=== PATIENT | female | born 1960 | race Caucasian/White ===

== ENCOUNTER 2021-05-08 11:11 | Outpatient (CLI) | payer OTHER, SELFPAY ==
--- NOTE | ~2021-05-08 | US_ITS ---
EXAMINATION: US thyroid DATE: 05/08/2021 11:40 INDICATION: Nontoxic single thyroid nodule. TECHNIQUE: Multiple ultrasound images of the thyroid were obtained. COMPARISON: None. FINDINGS: The right thyroid lobe measures 4.5 x 1.7 x 1.4 cm. The left thyroid lobe measures 4.0 x 1.6 x 1.0 c m. In the right thyroid lobe, there is a 7 mm solid, hypoechoic, [id number]-[id number]-[id number] nodule with ill-def ined margin without echogenic foci (TI-RADS TR4). IMPRESSION: 1. Small thyroid nodule, likely not clinically significant. No follow-up is needed. Reviewed, dictated and finalized at location A. IMPRESSION: 1. Small thyroid nodule, likely not clinically significant. No follow-up is nee ded.
== END 2021-05-08 11:12 | disposition home or self-care (01) ==
LOC: ANHIMG 11:18
PROVIDERS: PCP Family Medicine; Visit Provider Family Medicine
DX: E04.1 Nontoxic single thyroid nodule (principal); R22.1 Localized swelling, mass and lump, neck
CPT/HCPCS: 76536

== ENCOUNTER → 2021-05-15 17:22 | Outpatient (CLI) | payer OTHER, SELFPAY ==
--- NOTE | ~2021-05-15 | MM_ITS ---
EXAMINATION: MM screening [facility] BI w remigio HISTORY: Screening TECHNIQUE: Craniocaudal and mediolateral oblique 3-D tomosynthesis images were obtained and synthetic 2-D images were generated. CAD analysis was submitted and interpreted. COMPARISON: No prior mammogram is available for comparison at this institution. BREAST PARENCHYMAL COMPOSITION: There are scattered areas of fibroglandular density. FINDINGS: There is no evidence of suspicious mass, calcification, or architectural distortion to sugg est malignancy in either breast. There has been no suspicious interval change. IMPRESSION: 1. No mammographic evidence of malignancy. 2. Recommend routine screening mammography in one year. BI-RADS Category 1: Negative Reviewed, dictated and finalized at location A.
== END ==
PROVIDERS: PCP Family Medicine; Visit Provider Family Medicine
DX: Z12.31 Encounter for screening mammogram for malignant neoplasm of breast (principal)
CPT/HCPCS: 77063; 77067

== ENCOUNTER 2021-06-12 01:24 | Day surgery (SDC) | payer OTHER, SELFPAY ==
[2021-05-30 13:14] VITALS: BMI 27.3
[2021-06-12 09:52] VITALS: BP 107/90; PULSE 74; RESP 18; TEMP 36.4; O2SAT 99
[2021-06-12] MEDS: LACTATED RINGERS 1,000 ML 150 ML IV CONT (10:01)
--- NOTE | 2021-06-12 10:08 | WPDGICN ---
Assessment and Plan Assessment and plan (1) Encounter for screening colonoscopy: Code(s): Z12.11 - Encounter for screening for malignant neoplasm of colon Status: Acute Assessment and Plan: Patient presents for screening colonoscopy. She gives a history that she may have had colon polyps 9 or 10 years ago. Further recommendations will be given after endoscopy. GI Consult Note Consult date/time: 06/12/21 10:08 HPI: Do Hayes is a 60 year old female Presents for screening colonoscopy. Patient's current weight appetite and bowel movements are normal. She denies abdominal pain. She has had no bleeding. Family history is noncontributory. Patient states that she had a prior colonoscopy 9 or 10 years ago that may have shown colon polyps. Her family history is noncontributory. Review of Systems Review of Systems: All systems reviewed & are unremarkable except as noted in HPI and below PMFSH Past Medical History Medical History (Updated 06/12/21 @ 10:09 by Surya Sanchez MD) Hypertension Surgical History Surgical History History of delivery x3 Family History Family History Mother Hypertension Sibling Thymic cancer Asthma Diabetes mellitus Social History Social History Smoking status: Never smoker Tobacco type: cigarettes Second hand tobacco smoke exposure: No Smoking end date: 02/09/84 Alcohol intake: current Drinks per week: 1 Substance use: never Substance use type: does not use Living arrangements: with family Gender identity (if verbalized by the patient): Female Sexual Orientation (if Verbalized by the Patient): Straight or Heterosexual Spiritual care concerns: No Meds Home Medications and Allergies Home Medications Medication Instructions Recorded Confirmed Type amlodipine 5 mg tablet 5 mg PO DAILY #30 tablet 04/30/21 05/30/21 Rx lisinopril 10 mg tablet 10 mg PO DAILY #30 tablet 04/30/21 05/30/21 Rx Allergies Allergy/AdvReac Type Severity Reaction Status Date / Time Penicillins Allergy Unknown Hives Verified 06/12/21 09:50 Vital Signs Vital Signs - 24 hr 06/12/21 09:52 Temperature 97.5 F L Pulse Rate 74 Respiratory Rate 18 Blood Pressure 107/90 Pulse Oximetry 99 Exam Narrative: Physical exam reveals patient to be alert. Vital signs stable. HEENT exam is unremarkable. Patient is anicteric. Lungs are clear to auscultation and percussion. Heart is without murmur or extra sounds. Abdomen bowel sounds are present soft nontender with no organomegaly. Digital external rectal exam is normal.
--- NOTE | 2021-06-12 10:09 | WPDANESEPPF ---
Anes - Initial Pre Proc Eval Procedure: Operation Date: 06/12/21 11:00 Proposed Procedures p Screening Colonoscopy - Surya Sanchez MD Date/Time: 06/12/21 10:09 Surgeon: Surya Sanchez MD Pre Op Diagnosis: neoplasm screening, hx of colon polyps Patient Data Age: 60 Gender: F Height: 1.6 m Weight: 67.7 kg Last Vital Signs Temp 36.4 C L 06/12/21 09:52 Pulse 74 06/12/21 09:52 Resp 18 06/12/21 09:52 BP 107/90 06/12/21 09:52 Pulse Ox 99 06/12/21 09:52 Allergies Allergy/AdvReac Type Severity Reaction Status Date / Time Penicillins Allergy Unknown Hives Verified 06/12/21 09:50 Home Medications Medication Instructions Recorded Confirmed Type amlodipine 5 mg tablet 5 mg PO DAILY #30 tablet 04/30/21 05/30/21 Rx lisinopril 10 mg tablet 10 mg PO DAILY #30 tablet 04/30/21 05/30/21 Rx Patient hx anesthesia problems: none Family hx anesthesia problems: none Results Review: All pre-operative results and documents have been reviewed as part of the pre-operative evaluation. [facility] Past Medical History Medical History Hypertension Surgical History Surgical History History of delivery x3 Family History Family History Mother Hypertension Sibling Thymic cancer Asthma Diabetes mellitus Social History Social History Smoking status: Never smoker Tobacco type: cigarettes Second hand tobacco smoke exposure: No Smoking end date: 02/09/84 Alcohol intake: current Drinks per week: 1 Substance use: never Substance use type: does not use Living arrangements: with family Gender identity (if verbalized by the patient): Female Sexual Orientation (if Verbalized by the Patient): Straight or Heterosexual Spiritual care concerns: No Anes - Eval Final PreProcedure Day of Procedure 06/12/21 10:09 Patient weight: overweight Heart: regular rate and rhythm Lungs: clear to auscultation Airway: Mallampati scale class II Neurological: alert and oriented Last oral intake: >/= 8 hours ASA classification: II Emergent: no Anesthetic plan: proceed Anesthesia type and monitoring: general GIVS and standard monitoring Results Review: All pre-operative results and documents have been reviewed as part of the pre-operative evaluation. Informed Consent: The patient's anesthetic plan and its attendant risks and benefits were discussed with the patient/family/POA. Questions were solicited and answers provided to the satisfaction of the patient/family/POA.
[2021-06-12 10:36] VITALS: BP 94/46; PULSE 78; RESP 20; O2SAT 94
[2021-06-12 10:46] VITALS: BP 71/51; PULSE 80; RESP 19; O2SAT 94
[2021-06-12 10:56] VITALS: BP 97/71; PULSE 76; RESP 17; O2SAT 100
[2021-06-12 11:06] VITALS: BP 90/70; PULSE 66; RESP 22; O2SAT 100
[2021-06-12 11:16] VITALS: BP 111/53; PULSE 68; RESP 18; O2SAT 100
== END 2021-06-12 11:32 | disposition home or self-care (01) ==
PROVIDERS: PCP Family Medicine; Visit Provider Internal Medicine Gastroenterology
PROC: 0DJD8ZZ Inspection of Lower Intestinal Tract, Via Natural or Artificial Opening Endoscopic (ICD-10-PCS; CPT 45378; principal; 2021-06-12 11:00)
DX: Z12.11 Encounter for screening for malignant neoplasm of colon (principal); D12.3 Benign neoplasm of transverse colon; K64.8 Other hemorrhoids; K57.30 Diverticulosis of large intestine without perforation or abscess without bleeding; Z87.891 Personal history of nicotine dependence; I10 Essential (primary) hypertension
CPT/HCPCS: 45380; 88305; J2704; J7120

== ENCOUNTER 2022-07-22 14:00 | Emergency (ER) | payer OTHER, SELFPAY ==
--- NOTE | ~2022-07-22 | XR_ITS ---
EXAMINATION: XR hand RT min 3V DATE: 07/22/2022 INDICATION: Right hand injury and pain. TECHNIQUE: 3 views of right hand were obtained. COMPARISON: None. FINDINGS: Bone alignment is normal. No fracture. There is mild osteoarthritis of triscaphe joint and first carpometacarpal joint. There is mild osteoarthritis of second-fifth proximal interphalangeal kenny ints and second and third distal interphalangeal joints. IMPRESSION: 1. Mild polyarticular osteoarthritis. Reviewed, dictated and finalized at location A.
== END 2022-07-22 16:55 | disposition home or self-care (01) ==
PROVIDERS: Emergency Provider Nurse Practitioner Family
DX: S60.221A Contusion of right hand, initial encounter (principal); M54.50 Low back pain, unspecified; I10 Essential (primary) hypertension
CPT/HCPCS: 73130; 99213; G0463

== ENCOUNTER → 2022-09-03 11:43 | Outpatient (CLI) | payer OTHER, SELFPAY ==
--- NOTE | ~2022-09-03 | MM_ITS ---
EXAMINATION: MM screening [facility] BI w remigio HISTORY: Screening mammogram TECHNIQUE: Craniocaudal and mediolateral oblique 3-D tomosynthesis images were obtained and synthetic 2-D images were generated. CAD analysis was submitted and interpreted. COMPARISON: 05/15/2021 BREAST PARENCHYMAL COMPOSITION: There are scattered areas of fibroglandular density. FINDINGS: RIGHT BREAST: No suspicious mass, calcification, or architectural distortion are identified to sugges t malignancy. There has been no suspicious interval change. LEFT BREAST: An asymmetry is present in the far posterior third of the breast in line with the nipple axis on the craniocaudal view (tomosynthesis image 40/71). IMPRESSION: 1. Left breast asymmetry. 2. Additional mammographic views and possible breast ultrasound are recommended. BI-RADS Category 0: Incomplete: Needs additional imaging evaluation. Reviewed, dictated and finalized at location A. IMPRESSION: 1. Left breast asymmetry. 2. Additional mammographic views and possible breast ultrasound are recommended . BI-RADS Category 0: Incomplete: Needs additional imaging evaluation.
== END ==
PROVIDERS: PCP Family Medicine; Visit Provider Family Medicine
DX: Z12.31 Encounter for screening mammogram for malignant neoplasm of breast (principal); N64.89 Other specified disorders of breast
CPT/HCPCS: 77063; 77067

== ENCOUNTER → 2022-10-30 08:15 | Outpatient (CLI) | payer OTHER, SELFPAY ==
--- NOTE | ~2022-10-30 | MMUS_ITS ---
EXAMINATION: MM diagnostic [facility]tony LT w remigio, US breast LT complete HISTORY: Follow-up left breast asymmetry TECHNIQUE: Additional 3-D tomosynthesis images of the left breast were performed and synthetic 2-D im ages were generated. CAD analysis was submitted and interpreted. High resolution Limited left breast ultrasound was performed. COMPARISON: Comparison to multiple prior studies sequentially, with oldest reviewed study dated 08/2021. BREAST PARENCHYMAL COMPOSITION: Breast composed of scattered areas of fibroglandular density FINDINGS: MAMMOGRAPHIC FINDINGS: There are focal asymmetry posterior aspect of the left breast laterally on CC view. No discrete mass, suspicious architectural distortion or clustered calcifications are identified. ULTRASOUND: Limited left breast ultrasound: At 12:00, 3 cm from the nipple there is a 5 mm cyst. At 10:00, 5 cm f rom the nipple there is a 3 mm cyst. No suspicious masses to suggest malignancy. IMPRESSION: 1. No evidence for malignancy in the left breast. Benign findings. 2. Routine yearly screening mammogram and regular clinical breast examination are recommended. BI-RADS Category 2: Benign finding(s). Reviewed, dictated and finalized at location A. IMPRESSION: 1. No evidence for malignancy in the left breast. Benign findings. 2. Routine yearly screening mammogram and regular clinical breast examination a re recommended. BI-RADS Category 2: Benign finding(s).
== END ==
PROVIDERS: PCP Family Medicine; Visit Provider Family Medicine
DX: R92.8 Other abnormal and inconclusive findings on diagnostic imaging of breast (principal)
CPT/HCPCS: 76641; 77061; 77065; G0279

== ENCOUNTER 2024-12-01 11:02 | Outpatient (CLI) | payer MEDICARE, SELFPAY ==
--- NOTE | ~2024-12-01 | MM_ITS ---
EXAMINATION: MM screening [facility] BI w remigio HISTORY: Screening TECHNIQUE: Craniocaudal and mediolateral oblique 3-D tomosynthesis images were obtained and synthetic 2-D images were generated. CAD analysis was submitted and interpreted. COMPARISON: Comparison to multiple prior studies sequentially, with oldest reviewed study dated 05/15/2021. BREAST PARENCHYMAL COMPOSITION: Not dense: There are scattered areas of fibroglandular density. FINDINGS: There is no evidence of suspicious mass, calcification, or architectural distortion to suggest malignancy in either breast. There has been no suspicious interval change. IMPRESSION: 1. No mammographic evidence of malignancy. 2. Recommend routine screening mammography in one year. BI-RADS Category 1: Negative Reviewed, dictated and finalized at location O.
--- NOTE | ~2024-12-01 | DEXA_ITS ---
Bone Density Report Name: CHONG SWANSON Age: 64 Sex: Female Ethnicity: White Date of : 1960 Indication: postmenopausal; screening for osteoporosis; Referring Provider: GLENN KAISER Study: Bone densitometry was performed. Exam Date: December 01, 2024 Accession number: [id number] Bone Density: Region BMD T-score Z-score Classification AP Spine(L1-L4) 0.853 -1.8 0.0 Osteopenia Femoral Neck (Left) 0.535 -2.8 -1.3 Osteoporosis Total Hip (Left) 0.679 -2.2 -0.9 Osteopenia Femoral Neck (Right) 0.539 -2.8 -1.3 Osteoporosis Total Hip (Right) 0.629 -2.6 -1.3 Osteoporosis Total Hip Mean 0.654 -2.4 -1.1 Osteopenia World Health Organization criteria for BMD impression classify patients as: Normal (T-score at or above -1.0), Osteopenia (T-score between -1.0 and -2.5), or Osteoporosis (T-score at or below -2.5). 10-year Fracture Risk: FRAX not reported because: Some T-score for Spine Total or Hip Total or Femoral Neck at or below -2.5 Clinical Information Provided by Patient: Patient maximum height was 63 Menopause Age: 54 No regular weight bearing exercise Drinks caffeinated beverages Onset of menses at age 11 Number of children 3 Impression: The patient has osteoporosis, based on the Left Femoral Neck T-score. Discussion: INCREASED RISK OF FRACTURE. BONE DENSITY IS UNDESIRABLY LOW AT ONE OR MORE SKELETAL SITES, CONSISTENT WITH POSTMENOPAUSAL OSTEOPOROSIS. This patient's lowest T-score meets the World Health Organization's (WHO) criteria for osteoporosis at one or more sites (T-score -2.5 or below). In untreated patients, the risk of osteoporotic fracture increases approximately two-fold for each 1.0 SD decrease in T-score. Low bone density is not the only risk factor for fracture; also consider factors such as patient's age, frailty or poor health, risk of falling, risk of injury, previous osteoporotic fracture, family history of osteoporosis, cigarette smoking, low body weight, etc. Not everyone with low bone mineral density has osteoporosis; osteomalacia and other metabolic bone disorders should also be considered. Patients who have osteoporosis should be evaluated for specific diseases and conditions (secondary causes) that may cause or contribute to bone loss. The [place] Association of Clinical Endocrinologists (AACE) and National Osteoporosis Foundation (NOF) recommend pharmacologic intervention for all postmenopausal women whose T-score is in this range. The patient should follow a healthful lifestyle (good nutrition with adequate calcium and vitamin D, and appropriate weight-bearing exercise). Follow-Up: Consider a repeat BMD and Vertebral Fracture Assessment (VFA) exam in 2 years or sooner if medically necessary, to reassess this patient's status. Reported by: MEGHANN on 12/01/2024 11:31:00 AM. Reviewed, dictated and finalized at location A.
== END 2024-12-01 11:03 | disposition home or self-care (01) ==
LOC: MICIMG 11:02
PROVIDERS: PCP Family Medicine; Visit Provider Physician Assistant
DX: Z12.31 Encounter for screening mammogram for malignant neoplasm of breast (principal); M85.89 Other specified disorders of bone density and structure, multiple sites; M81.0 Age-related osteoporosis without current pathological fracture; Z78.0 Asymptomatic menopausal state
CPT/HCPCS: 77063; 77067; 77080

== ENCOUNTER 2025-01-09 07:50 | Outpatient (CLI) | payer MEDICARE, SELFPAY ==
--- OUTSIDE RECORDS SUMMARY | 2025-01-09 07:59 | XMS_ITS | Clinical Summary ---
Author Organization [address] Address [address] [place] [address] Care Team Providers Care Software Engineer Backend Name Role Phone Pedro Judd MD Primary Care Provider Allergies Active Allergy Reactions Criticality Noted Date Comments Penicillin Hives Medium 03/13/2023 Medications amLODIPine (NORVASC) 5 mg tablet Take 1 tablet (5 mg total) by mouth daily 03/06/2023 Active benzonatate (TESSALON) 100 mg capsuleIndicati ons:Cough Take 1 capsule (100 mg total) by mouth 3 (three) times a day as needed for cough 42 capsule 03/13/2023 Active Active Problems No known active problems Social History Tobacco Use Types Packs/Day Years Used Date Smoking Tobacco: Never Assessed Personal Safety Answer Date Recorded Getting School Help Needed Not on file 03/13 Comments Unknown Sex and Gender Information Value Date Recorded Sex Assigned at Not on file Legal Sex Female 3:04 AM HEALTH PROGRAM ANALYST Gender Identity Not on file Sexual Orientation Not on file Last Filed Vital Signs Vital Sign Reading Time Taken Comments Blood Pressure 122/76 03/13/2023 7:08 PM HEALTH PROGRAM ANALYST Pulse 78 03/13/2023 7:08 PM HEALTH PROGRAM ANALYST Temperature 37.1 C (98.8 F) 03/13/2023 7:08 PM HEALTH PROGRAM ANALYST Respiratory Rate 22 03/13/2023 7:08 PM HEALTH PROGRAM ANALYST Oxygen Saturation 99% 03/13/2023 7:08 PM HEALTH PROGRAM ANALYST Inhaled Oxygen Concentration - - Weight 68.5 kg (151 lb) 03/13/2023 7:08 PM HEALTH PROGRAM ANALYST Height 165.1 cm (5' 5) 03/13/2023 7:08 PM HEALTH PROGRAM ANALYST Body Mass Index 25.13 03/13/2023 7:08 PM HEALTH PROGRAM ANALYST Plan of Treatment Health Maintenance Due Date Last Done Comments Breast Cancer Screening-Mammogram 1960 Cervical Cancer Screening 1960 Colon Cancer Screening-Colonoscopy 1960 Depression Screening 1960 Fall Risk Assessment 1960 Hepatitis C Screening 1960 Osteoporosis Screening-Bone Density Scan 1960 Pneumococcal vaccine 65+ (1 of 1 - PCV) 08/22/2009 Well Visit 65+ 08/22/2024 Covid-19 Vaccine (6 - 2024-2 6 season) 2024 12/03/2022, 11/22/2021, 07/11/2021, Additional history exists Influenza Vaccine (#1) 2024 , 11/11/2021, 11/26/2016, Additional history exists DTaP/Tdap/Td Vaccine (2 - Td or Tdap) 07/24/2031 07/23/2021 Zoster Vaccine Completed 09/23/2021, 07/23/2021 Hepatitis B Screening Completed 02/27/2022 , 09/23/2021, 07/11/2021 Insurance [facility] [employer] Care Teams Software Engineer Backend Relationship Specialty Start Date End Date Pedro Judd MD [address] [place] [address] PCP - General Family Medicine 03/13/23
--- OUTSIDE RECORDS SUMMARY | 2025-01-09 07:59 | XMS_ITS | Clinical Summary ---
Author Organization [facility] Address [address] [place] [address] Care Team Providers Care Furniture Shampooer Name Role Phone Unavailable Primary Care Provider Unavailabl e Social History Tobacco Use Types Packs/Day Years Used Date Smoking Tobacco: Never Assessed Comments Unknown Sex and Gender Information Value Date Recorded Sex Assigned at Not on file Legal Sex Female 4:38 PM CDT Gender Identity Not on file Sexual Orientation Not on file Plan of Treatment Health Maintenance Due Date Last Done Comments Colorectal Cancer Screening Colonoscopy (10 Years) 1960 Hepatitis C 08/22/1977 DTaP, Tdap and Td Vaccines ( 1 - Tdap) 08/22/1978 Mammogram Screening 1999 Pneumococcal Vaccine: 50+ Ye ars (1 of 1 - PCV) 08/22/2009 Zoster Vaccines (1 of 2) 08/22/2009 Dexa Scan (General) 08/22/2024 COVID-19 Vaccine ( - 2024-2 6 season) 2024 Influenza Adult (#1) 2024 RSV Immunization or 60+ Years (1 - 1-dose 75+ series) 08/22/2034 Hepatitis A Vaccines Aged Out No long er eligible based on patient's age to complete this topic Meningococcal B Vaccine Aged Out No l onger eligible based on patient's age to complete this topic Meningococcal Vaccine Aged Out No tracey avery eligible based on patient's age to complete this topic RSV Immunizations Under 20 Months Aged Out No longer eligible based on patient's age to complete this topic
--- OUTSIDE RECORDS SUMMARY | 2025-01-09 07:59 | XMS_ITS | Clinical Summary ---
Author Organization [facility] Address [address] [place] [address] Care Team Providers Care Middleware Architect Name Role Phone Pedro Judd MD Primary Care Provider [phone] Source Comments [facility],non-owned Affiliates and Associated Physician Practices is amultiple site organization consisting of ambulatory clinics and hospital sitesin [place], [place]. This disclosure is being madepursuant to the Care Everywhere program and may not contain all information available regarding this patient. Last updated 17.[facility] Allergies Active Allergy Reactions Criticality Noted Date Comments Penicillins Rash Medium 03/26/2017 Penicillins Rash Medium 08/01/2018 After mono tx. Pt states she takes amoxcillin without reaction Medications * Be aware that medications may not be up to date on this document. Alwaysverify current medications with the patient. No known medications Active Problems No known active problems Social History Tobacco Use Types Packs/Day Years Used Date Smoking Tobacco: Never Smokeless Tobacco: Never Comments Unknown Sex and Gender Information Value Date Recorded Sex Assigned at Not on file Legal Sex Female 8:49 AM DEPLOYMENT MANAGER Gender Identity Not on file Sexual Orientation Not on file Last Filed Vital Signs Vital Sign Reading Time Taken Comments Blood Pressure 112/74 08/01/2018 5:05 PM CDT Pulse 77 08/01/2018 5:05 PM CDT Temperature 37 C (98.6 F) 08/01/2018 5:05 PM CDT Respiratory Rate 16 08/01/2018 5:05 PM CDT Oxygen Saturation 97% 08/01/2018 5:05 PM CDT Inhaled Oxygen Concentration - - Weight 65.8 kg (145 lb) 08/01/2018 5:05 PM CDT Height 161.3 cm (5' 3.5) 08/01/2018 5:05 PM CDT Body Mass Index 25.28 08/01/2018 5:05 PM CDT Plan of Treatment Health Maintenance Due Date Last Done Comments BONE DENSITY TESTING 1960 COLOGUARD (AGES 45-75) - COL ON CA SCREENING 1960 COLON MONITORING 1959 COLONOSCOPY - COLON CA SCREENING 1959 CT COLONOGRAPHY - COLON CA SCREENING 1960 Colorectal Cancer Screening 1960 FIT - COLON CA SCREENING 1959 FLEX SIG - COLON CA SCREENING 1959 LIPID TESTING 1960 MAMMOGRAM 1960 HIV SCREENING 08/22/1974 HEPATITIS C SCREENING 08/18/1977 DTAP/TDAP/TD VACCINES (1 - Tdap) 08/22/1978 PAP SMEAR 08/22/1980 Cervical Cancer Screening 08/22/1989 PAP with HPV 08/22/1989 PNEUMOCOCCAL VACCINE 50+ (1 of 1 - PCV) 08/22/2009 ZOSTER VACCINE (1 of 2) 08/22/2009 SCREENING FOR DIABETES 08/01/2018 DEPRESSION SCREENING 02/09/2024 COVID-19 VACCINE (1 - 2024-2 6 season) 2024 INFLUENZA VACCINE (#1) 2024 Respiratory Syncytial Virus (RSV) Vaccine Pt: or over 60 yrs (1 - 1-dose 75+ series) 08/22/2034 HEPATITIS B VACCINE Aged Out No longe r eligible based on patient's age to complete this topic HIB VACCINE Aged Out No longer eligi ble based on patient's age to complete this topic HPV VACCINE Aged Out No longer eligi ble based on patient's age to complete this topic MENINGOCOCCAL (Group B) VACC INE SHARED DECISION-MAKING Aged Out No longer eligibl e based on patient's age to complete this topic MENINGOCOCCAL GROUPS A/C/Y/W VACCINE Aged Out No longer eligible b ased on patient's age to complete this topic Insurance Care Teams Middleware Architect Relationship Specialty Start Date End Date Pedro Judd MD [address] [place] [address] [facility] - General 06/17/21
--- NOTE | 2025-01-10 21:45 | P.PCNPFT_ITS ---
PFT Procedure Performed PFT Procedure Performed Spirometry with Pre/Post Bronchodilator Plethysmography (Lung Vol) Diffusing Cap (DLCO) Flow Vol Loop PFT Interpretation DOS: 01/09/2025 REQUESTING: Eladio Moon PA-C REASON FOR TESTING: shortness of breath PULMONARY FUNCTION TESTS Results are reliable and reproducible. Repeatability of spirometry FEV1 maneuver pre and post bronchodilator is Grade A. Mono: [facility] 2012 reference equations were used. Spirometry: The pre-bronchodilator FEV1 is 1.96 L, 86%. The pre-bronchodilator FVC is 3.25 L, 112%. The FEV1/FVC ratio is 60%, decreased. After bronchodilator, the FEV1 is 2.15 L, 95%, +10. After bronchodilator, the FVC is 3.37 L, 116%, +4. The FEV1/FVC ratio is 64%. Lung volumes: The total lung capacity is 5.42 L, 111%. The functional reserve capacity is 3.23 L, 116%. The residual volume is 2.17 L, 106%. The RV/TLC is 40%. Airway resistance is increased. Diffusion: DLCO is 15.8, 77%. The DLCO/VA is 3.78, 86%. Flow volume loop: The flow volume loop shows mild coving in the expiratory limb. IMPRESSION: This study shows a mild obstructive ventilatory impairment without significant response to bronchodilator, normal lung volumes, normal diffusion. Lack of response to bronchodilator should not preclude use if clinically indicated. No prior studies to compare. Kylah Bryant MD
== END 2025-01-09 07:51 | disposition home or self-care (01) ==
PROVIDERS: PCP Family Medicine; Visit Provider Physician Assistant
DX: J98.4 Other disorders of lung (principal)
CPT/HCPCS: 94060; 94726; 94729

== ENCOUNTER 2025-01-18 08:09 | Outpatient (CLI) | payer MEDICARE, SELFPAY ==
--- NOTE | ~2025-01-18 | XR_ITS ---
Examination: XR chest 2V Clinical History: R05.9 - Cough, unspecified Comparison: None Technique: PA and Lateral Findings: Cardiomediastinal silhouette normal size and configuration. Lungs clear. No acute bony abnormality. IMPRESSION: 1. No acute cardiopulmonary findings. Reviewed, dictated and finalized at location R. [employer]' ADVISORY SERVICE LIBRARIAN
== END 2025-01-18 08:10 | disposition home or self-care (01) ==
LOC: MICIMG 08:10
PROVIDERS: PCP Family Medicine; Visit Provider Physician Assistant
DX: R05.9 Cough, unspecified (principal); R06.02 Shortness of breath
CPT/HCPCS: 71046